=== PATIENT | female | born 1950 | race Caucasian/White ===

== ENCOUNTER 2017-03-05 05:35 | Day surgery (SDC) | payer OTHER ==
[~2017-03-05] VITALS: Ht 165.1 cm; Wt 94.8 kg
--- NOTE | ~2017-03-05 | O ---
[facility] [place] [address] OPERATIVE REPORT Name: LORNE MATT Marilee Room #: [facility]..#: [id number] Admission: 03/05/17 Attend Phys: Eligio Brock MD Discharge: 03/05/17 Date of : 48 Report #: [id number] THIS REPORT FOR: //name// CC: Comfort Braswell DATE OF SERVICE: 03/05/2017 AIRCRAFT REFUELLER: None. 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 OPERATION PERFORMED: Bilateral upper lid functional ptosis repair. AIRCRAFT REFUELLER: None. ANESTHESIA: Local with IV sedation. COMPLICATIONS: None. INDICATIONS FOR PROCEDURE: This patient has bilateral upper lid ptosis with superior visual field loss OU in excess of 30%. Visual field testing demonstrates an improvement in the superior visual field loss with elevation of the eyelid margin into a normal anatomic location. The current procedure is being undertaken in order to improve the patient's visual function. Informed consent was obtained to include but not limited to the risk of loss of vision, bleeding, infection, scarring, failure to improve the problem and need for further surgery, such as adjustment of lid height. DESCRIPTION OF PROCEDURE: The patient was taken to the operating room, where 2% Xylocaine with epinephrine mixed with equal parts of 0.75% Marcaine with Wydase was administered transcutaneously to the each upper lid. The patient was then prepped and draped in the usual sterile fashion. An upper lid crease incision was then made bilaterally and the dissection was carried down until the orbital septum was identified. The orbital septum was then cleared and the preaponeurotic fat identified. The levator aponeurosis was then disinserted from the anterior surface of the tarsal plate and dissected free in the avascular Proctor's muscle plane. The aponeurosis was then advanced and reattached to the anterior surface of the tarsal plate with interrupted [address] [address] OPERATIVE REPORT Name: LORNE MATT Marilee Room #: [facility].#: [id number] Admission: 03/05/17 Attend Phys: Eligio Brock MD Discharge: 03/05/17 Date of : 48 Report #: [id number] 6-0 Novafil sutures on each side, adjusting for height and contour. The redundant aponeurosis was then amputated. The incision was then closed with multiple interrupted 6-0 Chromic sutures that were used to recreate an upper lid crease. The skin was closed with a running 6-0 plain gut suture. The wound was then cleaned and dressed with ophthalmic antibiotic ointment followed by a Telfa pad. The patient was transported to the recovery area, having tolerated the procedure well with no anesthesia or operative complications being noted. <ELECTRONICALLY SIGNED> By: Eligio Brock MD 03/12/17 0614 [id number] Eligio Brock MD /dalia
[~2017-03-05 05:35] MED LIST: ASPIRIN81 M2 PO; BETIMOL15 ML OPHTHALMIC; CENTRUM SILVER1 EAC4 PO; FIBER500 MG PO; GLUCOSAMINE CH1 EAC2 PO; KLOR-CON 1010 MEQ PO; METFORMIN HCL1000 MG PO; PROBIOTIC1 EAC1 PO; REFRESH TEARS15 ML OPHTHALMIC; VITAMIN B-12500 MCG PO; VITAMIN D1000 UNI1 PO; VITAMINC500 PO
[2017-03-05 10:48] VITALS: BP 139/80
== END 2017-03-05 13:55 | disposition home or self-care (01) ==
LOC: OR 05:35 → TBA 05:36 → OR 13:55
DX: H02.403 Unspecified ptosis of bilateral eyelids (principal); H53.462 Homonymous bilateral field defects, left side; H53.461 Homonymous bilateral field defects, right side
CPT/HCPCS: 50010; 50101; 50386; 50398; 51606; 51636; 56528; 56531; 62110; 62850; 70005